=== PATIENT | female | born 1990 | race American Indian/Alaskan Native ===

== ENCOUNTER 2017-01-28 18:19 | Emergency (ER) | payer MEDICAID ==
--- NOTE | 2017-01-28 21:21 | Emergency Department Report ---
HPI - General Chief Complaint: Headache Time Seen by Provider: 01/28/17 21:17 - HPI HPI: 26-year-old -[place] female comes in for migraine headache with nausea vomiting that started about 5 AM this morning. She states she tried taking 3 200 mg Motrin this morning without much for results. She is actively vomiting during exam. She has no known drug allergies she has a past medical history of anemia. ED Past Medical Hx - Past Medical History Previous Medical History?: Yes Hx Headaches / Migraines: Yes Additional medical history: Anemia - Surgical History Past Surgical History?: Yes Additional Surgical History: X 2 - Social History Smoking Status: Current Every Day Smoker Substance Use Type: None - Medications Home Medications: Home Medications Medication Instructions Recorded Confirmed Last Taken Type Butalb/Acetaminophen/Caffeine 1 cap PO Q8HR PRN #30 cap 01/28/17 Unknown Rx [Fioricet 50-300-40 mg CAP] Ondansetron [Zofran Odt] 4 mg PO Q8HR PRN #20 tab.rapdis 01/28/17 Unknown Rx ED Review of Systems ROS: Stated complaint: HEADACHE/SHAKING Other details as noted in HPI Gastrointestinal: nausea, vomiting Neurological: headache Physical Exam - Physical Exam Vital Signs: Vital Signs 01/28/17 18:48 Temperature 98.6 F Pulse Rate 64 Respiratory 22 Rate Blood Pressure 114/69 O2 Sat by Pulse 100 Oximetry General: GENERAL: Alert and oriented x3, no apparent distress, Normal Gait, atraumatic. HEAD: Head is normocephalic and a-traumatic. EYES: Extra ocular muscles are intact. Pupils are equal, round, and reactive to light and accommodation. EARS: symetrical, atraumatic, non tender, ear canal clear and moderate cerumen, tympanic membrance non inflamed. gross auditory nml bilaterally. NOSE: Nose symetrical, Nontender,Nares appeared normal. MOUTH:Mouth is well hydrated and without lesions. Tonsils nonerythematous or swollen, Uvula midline, Tongue not elevated. Mucous membranes are moist. Posterior pharynx clear, no exudate or lesions. Patent airways. NECK: Supple. Non edematous, No carotid bruits. No lymphadenopathy or thyromegaly. LUNGS: Symetrical with respiration, No wheezing, no rales or crackles, CTAB. HEART: S1, S2 present, regular rate and rhythm without murmur, no rubs, no gallops. ABDOMEN: No organomegaly was noted,Positive bowel sounds, soft, and non- distended. . Nontender to palpation on all Quadrants, NO CVA tenderness. es 2+ bilaterally. LE and UE 5+ strength bilaterally NEUROLOGIC: No focal Deficit, Cranial nerves II through XII are grossly intact. No loss of sensation, No facial droop, . PSYCHIATRIC: Mood is congruent with affect, SKIN: Warm and dry, No lesions, No ulceration or induration present ED Course Vital Signs 01/28/17 18:48 Temperature 98.6 F Pulse Rate 64 Respiratory 22 Rate Blood Pressure 114/69 O2 Sat by Pulse 100 Oximetry - Reevaluation(s) Reevaluation #1: 01/28/17 23:40 Patient reports that she feels much better she does not have a headache any longer. She is no longer nauseated. ED Medical Decision Making - Lab Data Result diagrams: 01/28/17 21:40 01/28/17 21:40 - Medical Decision Making Is been evaluated by this provider fast track. CBC BMP IV insertion IV fluids 500 mL bolus, Reglan 10mg, Zofran 4mg. Urgency test was done which is negative. Discussed with patient that we would discharge her home Fioricet Zofran 4 mg and a referral to neurology. Patient verbalized understanding Critical care attestation.: If time is entered above; I have spent that time in minutes in the direct care of this critically ill patient, excluding procedure time. ED Disposition Clinical Impression: Headache Qualifiers: Headache type: unspecified Headache chronicity pattern: acute headache Intractability: not intractable Qualified Code(s): R51 - Headache Disposition: DISCHARGED TO HOME OR SELFCARE Is pt being admited?: No Does the pt Need Aspirin: No Condition: Stable Instructions: Aspirin/Caffeine (By mouth) Additional Instructions: Please drink plenty of fluids. Take medication for headache as needed. Please follow-up with the neurologist. Prescriptions: Butalb/Acetaminophen/Caffeine [Fioricet 50-300-40 mg CAP] 1 cap PO Q8HR PRN #30 cap PRN Reason: Headache Ondansetron [Zofran Odt] 4 mg PO Q8HR PRN #20 tab.rapdis PRN Reason: Nausea Referrals: PRIMARY CARE, [Primary Care Provider] - 3-5 Days SHARONA SCHREIBER MD [Staff Physician] - 3-5 Days AZUCENA VIZCAINO MD [Referring] - 3-5 Days Forms: Work/School Release Form(ED)
[2017-01-28] MEDS ORDERED: NACL 0.9% 500 ML 500 ML IV ONE (21:23)
[2017-01-28] MEDS ORDERED: REGLAN IV ONE (21:25)
[2017-01-28 21:58] LABS: Basophils % (Auto) 0.7 % (0.0-1.8); Eosinophils % (Auto) 0.1 % (0.0-4.3); Hematocrit 39.5 % (30.3-42.9); Hemoglobin 12.5 gm/dl (10.1-14.3); Mean Corpuscular HGB Conc 32 % (30-34); Mean Corpuscular Hemoglobin 25 pg (28-32); Mean Corpuscular Volume 78 fl (79-97); Platelet Count 150 K/mm3 (140-440); Red Blood Count 5.05 M/mm3 (3.65-5.03); Red Cell Distribution Width 17.1 % (13.2-15.2); White Blood Count 13.2 K/mm3 (4.5-11.0)
[2017-01-28 22:05] LABS: Anion Gap 21 mmol/L; Blood Urea Nitrogen 7 mg/dL (7-17); Carbon Dioxide 19 mmol/L (22-30); Chloride 103.3 mmol/L (98-107); Glucose 96 mg/dL (65-100); Potassium 3.8 mmol/L (3.6-5.0); Sodium 139 mmol/L (137-145)
[2017-01-28 22:05] LABS: Bilirubin,Urine NEG (Negative); Blood,Urine SM (Negative); Ketones,Urine 80 mg/dL (Negative); Leukocyte Esterase,Urine NEG (Negative); Mucus,Urine 2+ /HPF; Nitrite,Urine NEG (Negative); Urobilinogen,Urine < 2.0 mg/dL (<2.0)
[2017-01-29 00:03] VITALS: BP 109/75
== END 2017-01-29 00:01 | disposition home or self-care (01) ==
LOC: ED 18:19
DX: G43.909 Migraine, unspecified, not intractable, without status migrainosus (principal); F17.200 Nicotine dependence, unspecified, uncomplicated
CPT/HCPCS: 36415; 80048; 81001; 81025; 85025; 96374; 99283; J2765; J7040